=== PATIENT | female | born 1975 | race Caucasian/White ===

== ENCOUNTER 2024-08-22 19:12 | Emergency (ER) | payer OTHER ==
[~2024-08-22] VITALS: Ht 147.3 cm; Wt 65.8 kg
[2024-08-22] MEDS ORDERED: KETOROLAC TROMETHAMINE INJ 30 MG/ML VIAL ONE (22:02)
[2024-08-22] MEDS ORDERED: ACETAMINOPHEN 650 MG/20.3 ML UDC ONE (22:02)
[2024-08-22] MEDS ORDERED: METHOCARBAMOL (500MG) 500 MG TABLET ONE (22:02)
[2024-08-22] MEDS: KETOROLAC TROMETHAMINE INJ 30 MG/ML VIAL IM ONE (22:09)
[2024-08-22] MEDS: METHOCARBAMOL (750MG) 750 MG TABLET PO SCH (22:09)
[2024-08-22] MEDS: ACETAMINOPHEN 325 MG TABLET PO ONE (22:09)
[2024-08-22] MEDS ORDERED: METH-649 PO (23:30)
[2024-08-22] MEDS ORDERED: LIDO1ADH82 TP (23:30)
[2024-08-22] MEDS ORDERED: ACET325C7 PO (23:31)
[2024-08-22] MEDS ORDERED: IBUP-1955 PO (23:31)
[2024-08-23 01:29] VITALS: BP 153/90; TEMP 98.1; O2SAT 98
== END 2024-08-23 01:29 | disposition home or self-care (01) ==
LOC: ER 19:20
DX: Z79.899 Other long term (current) drug therapy (principal); M54.40 Lumbago with sciatica, unspecified side; M54.2 Cervicalgia; R51.9 Headache, unspecified; I10 Essential (primary) hypertension; X58.XXXA Exposure to other specified factors, initial encounter; Y93.89 Activity, other specified; Y92.410 Unspecified street and highway as the place of occurrence of the external cause; Y99.8 Other external cause status
CPT/HCPCS: 99285; 72125; 96372; 72100; 70450; J1885

== ENCOUNTER 2025-08-25 15:28 | Emergency (ER) | payer OTHER ==
[~2025-08-25] VITALS: Ht 154.9 cm; Wt 66.7 kg
[~2025-08-25 15:28] MED LIST: ACET325C7 PO; IBUP-1955 PO; LIDO1ADH82 TP; METH-649 PO
[2025-08-25] MEDS ORDERED: IBUPROFEN 600 MG TABLET ONE (16:14)
[2025-08-25] MEDS ORDERED: ACETAMINOPHEN ES 500 MG TABLET ONE (16:14)
[2025-08-25] MEDS: ACETAMINOPHEN ES 500 MG TABLET PO ONE (16:16)
[2025-08-25] MEDS: IBUPROFEN 600 MG TABLET PO ONE (16:25)
[2025-08-25] MEDS ORDERED: IBUP-1490 PO (16:42)
[2025-08-25] MEDS ORDERED: LIDO30AD10 TP (16:42)
[2025-08-25 17:12] VITALS: BP 126/88; TEMP 98.1; O2SAT 98
== END 2025-08-25 17:14 | disposition home or self-care (01) ==
LOC: ER 15:46
DX: M54.50 Low back pain, unspecified (principal); M25.562 Pain in left knee; Z91.048 Other nonmedicinal substance allergy status
CPT/HCPCS: 72100-TC; 73564-TC